=== PATIENT | male | born 1960 | race Hispanic/Latino ===

== ENCOUNTER 2017-04-17 16:10 | Emergency (ER) | payer OTHER ==
[~2017-04-17] VITALS: Ht 177.8 cm; Wt 103.4 kg
--- NOTE | 2017-04-17 16:40 | NUR ---
CT PT TO CT VIA WHEELCHAIR.
--- NOTE | 2017-04-17 16:43 | ER.PDOC ---
General Chief Complaint: Head Injury Stated Complaint: FACE LACERATION,NECK/BACK INJURY Time seen by MD: 16:39 Source: patient Exam Limitations: no limitations History of Present Illness Initial Comments Laceration to the head, neck and back pain. Patient landed on the head when he jumped into a pool to swim. Occurred: just prior to arrival Severity: moderate Location: frontal Remembers: injury, coming to hospital Allergies: Coded Allergies: No Known Allergies (Unverified , 04/17/17) Home Meds Unable to Obtain Active Prescriptions or Reported Meds Past Medical History Medical History: diabetes, hypertension Surgical History: other Social History Smoking: less than 1 pack/day Alcohol Use: occassionally Drug Use: none Review of Systems Constitutional: no symptoms reported Respiratory: no symptoms reported Cardiovascular: no symptoms reported Gastrointestinal: no symptoms reported Musculoskeletal: see HPI Skin: see HPI All Other Systems: Reviewed and Negative Physical Exam General Appearance: Alert, No Apparent Distress, WD/WN Head: Lacerations (frontal area) ENT: Nml external inspection, Pharynx nml 1 - lac Neck: pain on neck movement Cardiovascular/Respiratory: Regular Rate, Rhythm, No M/R/G, Normal Peripheral Pulses, No JVD, Normal Breath Sounds, No Respiratory Distress Gastrointestinal: Normal Bowel Sounds, No Organomegaly, No Pulsatile Mass, Non Tender, Soft Back: Vertebral Tenderness (Lunbar spine) Extremities: Normal Range of Motion, Non-Tender, Normal Inspection, No Pedal Edema, No Calf Tenderness, Normal Capillary Refill NEURO/PSYCH: Alert, Oriented x3, Cooperative, Interactive, Mood/affect nml Cranial Nerves: Normal Hearing, Normal Speech, PERRL Coordination/Gait: Normal Finger to Nose, Normal Gait Motor/Sensory: No Motor Deficit, No Sensory Deficit, No Pronator Drift, Negative Babinski's Sign Lymphatic: No Adenopathy Matthew Coma Score Best Eye Response: (4) Open Spontaneously Best Verbal Response: (5) Oriented Best Motor Response: (6) Obeys Commands Laceration/Wound Repair Laceration/Wound Repair : Wound Location: head Wound Length (cm): 4 Wound cleaned: betadine Anesthesia: 1% Lidocaine Volume Anesthetic (ccs): 10 Wound's Depth, Shape: irregular Irrigated w/ Saline (ccs): 50 Wound Repaired With: sutures Suture Size/Type: 4:0, ethilon Suture Style: interupted Number of Sutures: 6 Sterile Dressing Applied?: Yes EKG/XRAY/CT/US CT Comments: Nothing acute on CT head, C, T and L spines Departure Time of Disposition: 18:04 Disposition: 01 HOME, SELF-CARE Impression: Primary Impression: Laceration of head Qualified Codes: S01.91XA - Laceration without foreign body of unspecified part of head, initial encounter Additional Impressions: Neck pain Low back pain Qualified Codes: M54.5 - Low back pain Sinusitis Qualified Codes: J32.9 - Chronic sinusitis, unspecified Condition: Stable Referrals: PCP,UNKNOWN (PCP) PRIMARY CARE PROVIDER Additional Instructions: Keflex Apply Neosporin daily Remove sutures in 7 days at your PCP or ED Scripts Unable to Obtain Active Prescriptions or Reported Meds CHINA TUBBS MD Apr 17, 2017 16:43
[2017-04-17] MEDS ORDERED: LIDOCAINE 1% VIAL ONE (16:57)
[2017-04-17] MEDS ORDERED: BOOSTRIX VACCINE SYRINGE IM ONE (17:00)
[2017-04-17] MEDS ORDERED: TETANUS DIPHTHERIA TOXOIDS IM ONE (17:20)
--- NOTE | 2017-04-17 17:26 | NUR ---
TETANUS BOOSTRIX LOT:[id number] EXP:05/19/19
--- NOTE | 2017-04-17 17:37 | DIREP ---
PROCEDURE:CT HEAD WITHOUT CONTRAST TECHNIQUE:Axial cuts were obtained through the head, without intravenous contrast material. The images were viewed at brain and bone settings. COMPARISON:None. INDICATIONS:Pain from falling FINDINGS: VENTRICLES:Normal. CEREBRUM:There is no CT evidence of mass, hemorrhage, or acute infarct. CEREBELLUM:Normal. BRAINSTEM:Normal. SKULL:Normal. SINUSES:Soft tissue opacification of most ethmoid air cells. Mild mucosal thickening left maxillary and. OTHER:Negative. CONCLUSION: 1. No intracranial abnormality is identified. 2. Ethmoid and left maxillary sinus disease Dictated by: Annika Sylvester III, MD on 04/17/2017 at 05:34 PM
[2017-04-17] MEDS ORDERED: TRIPLE ANTIBIOTIC OINTMENT TP ONE (17:40)
--- NOTE | 2017-04-17 17:40 | DIREP ---
PROCEDURE: CT SPINE CERVICAL W/0 COMPARISON:None. INDICATIONS:pain FINDINGS: ALIGNMENT:Normal. VERTEBRAE:Normal. PARASPINAL AREA:Normal. OTHER:No additional findings. CERVICAL DISC LEVELS C2-C3:Normal. C3-C4:Normal. C4-C5:Moderate loss of disc height. C5-C6:Normal. C6-C7:Moderate loss of disc height. C7-T1:Normal. CONCLUSION: 1. No fracture demonstrated. 2. C4-5 and C6-7 degenerative disc disease. Dictated by: Annika Sylvester III, MD on 04/17/2017 at 05:38 PM
--- NOTE | 2017-04-17 17:48 | DIREP ---
PROCEDURE:CT SPINE THORACIC W/O COMPARISON:[facility], CT, CT SPINE LUMBAR W/O, 04/17/2017, 05:07 PM. INDICATIONS:pain TECHNIQUE:Multi-planar CT images were obtained and created without intravenous contrast. FINDINGS: VERTEBRAE: Mild wedging of the superior endplates of the T7 and T8 vertebral bodies. PARASPINAL AREA:Normal. DISC LEVELS:Normal. ALIGNMENT:Normal. OTHER:Negative. CONCLUSION: Mild wedging of the superior endplates of the T7 and T8 vertebral bodies, age-indeterminate. Dictated by: Annika Sylvester III, MD on 04/17/2017 at 05:40 PM
--- NOTE | 2017-04-17 17:52 | DIREP ---
PROCEDURE: CT SPINE LUMBAR W/O TECHNIQUE:Axial cuts were obtained through the lumbar spine. The images were viewed at bone settings. COMPARISON:None. INDICATIONS:pain FINDINGS: ALIGNMENT:Normal. VERTEBRAE:Normal. PARASPINAL AREA:Normal. OTHER:There are a few surgical clips in the right upper quadrant of the abdomen. LUMBAR DISC LEVELS T12-L1:Normal. L1-L2:Normal. L2-L3:Normal. L3-L4:Normal. L4-L5:Normal. L5-S1:Normal. CONCLUSION:Normal examination. Dictated by: Annika Sylvester III, MD on 04/17/2017 at 05:49 PM
--- NOTE | 2017-04-17 18:11 | NUR ---
DRESSING APPLIED TO PT FOREHEAD.
[2017-04-17 18:18] VITALS: BP 161/104
== END 2017-04-17 18:15 | disposition home or self-care (01) ==
LOC: ER 16:10
DX: S01.81XA Laceration without foreign body of other part of head, initial encounter (principal); M54.2 Cervicalgia; M54.5 Low back pain; J32.9 Chronic sinusitis, unspecified; E11.9 Type 2 diabetes mellitus without complications; I10 Essential (primary) hypertension; F17.200 Nicotine dependence, unspecified, uncomplicated; W22.8XXA Striking against or struck by other objects, initial encounter; Y93.39 Activity, other involving climbing, rappelling and jumping off; Y92.34 Swimming pool (public) as the place of occurrence of the external cause; Y99.8 Other external cause status
CPT/HCPCS: 12013; 70450; 72125; 72128; 72131; 90471; 90714; 99284; J2001